=== PATIENT | female | born 1945 | race Caucasian/White ===

== ENCOUNTER 2017-01-27 14:51 | Emergency (ER) | payer MEDICARE, OTHER ==
[2017-01-27] MEDS ORDERED: DEXAMETHASONE 10 MG/ML VIAL IVP STA (15:53)
[2017-01-27] MEDS ORDERED: KETOROLAC 60 MG/2 ML VIAL IVP STA (15:53)
[2017-01-27] MEDS ORDERED: DEXAMETHASONE 10 MG/ML VIAL ONE (15:56)
[2017-01-27] MEDS ORDERED: KETOROLAC 30 MG/ML VIAL ONE (15:56)
--- NOTE | 2017-01-27 15:59 | ED Physician Documentation ---
History of Present Illness - Stated complaint Stated Complaint: ABD PX - Chief complaint Chief Complaint: Abd Pain - History obtained from History obtained from: Patient - History of Present Illness Timing: Other (10 months) Pain level max: 8 Pain level now: 6 Improved by: rest Worsened by: movement - Additonal information Additional information: Patient is a 71-year-old female that presents to the emergency department complaining of right lower quadrant abdominal pain. She states that this is near the site of her prior hernia repair. This was repaired approximately 10 months ago. Has had continued pain in that site since that time. She is well- appearing, nontoxic. Afebrile. States that she limps when she walks and this is not creating back pain for her as well. Has seen her doctor for this, but states that oxycodone and Vicodin are not helping the pain. She did have vomiting this morning. No fevers. No diarrhea Review of Systems Ten Systems: 10 systems reviewed and negative Constitutional: denies: Fever, Chills Ears: denies: Ear pain Nose: denies: Rhinorrhea / runny nose, Congestion Throat: denies: Sore throat Cardiac: denies: Chest pain / pressure Respiratory: denies: Dyspnea, Cough, Wheezing GI: denies: Nausea, Vomiting, Diarrhea : denies: Dysuria Skin: denies: Rash Musculoskeletal: denies: Neck pain, Back pain Neurologic: denies: Focal weakness, Numbness, Headache PD PAST MEDICAL HISTORY - Past Medical History Past Medical History: Yes Cardiovascular: Hypertension Respiratory: Asthma Endocrine/Autoimmune: None GI: Colon polyps : None HEENT: Chronic vision loss Psych: None Musculoskeletal: None, Chronic back pain Derm: None - Past Surgical History Past Surgical History: Yes General: Colonoscopy Ortho: Spine surgery Derm: Other - Present Medications Home Medications: Ambulatory Orders Medication Instructions Recorded Confirmed Amlodipine Besylate 5 mg PO DAILY 01/14/13 01/27/17 Carvedilol 6.25 mg PO DAILY 01/14/13 01/27/17 hydroCHLOROthiazide [Hydrodiuril] 25 mg PO ONCE 01/14/13 01/27/17 Albuterol Sulfate [Proair Hfa] 8.5 gm IH DAILY 04/02/16 01/27/17 Fluticasone/Vilanterol [Breo 1 puffs DAILY 01/27/17 01/27/17 Ellipta 100-25 Mcg INH] Lidocaine Patch 5% [Lidoderm Patch] 1 patch TOP DAILY PRN #10 patch 01/27/17 Losartan [Cozaar] 50 mg PO DAILY 01/27/17 01/27/17 Meloxicam [Mobic] 7.5 mg PO BID PRN #20 tablet 01/27/17 - Allergies Allergies/Adverse Reactions: Allergies Allergy/AdvReac Type Severity Reaction Status Date / Time tetanus toxoid, adsorbed Allergy unknown Verified 01/27/17 15:35 - Social History Does the pt smoke?: No Smoking Status: Never smoker Does the pt drink ETOH?: Yes Does the pt have substance abuse?: No - POLST Patient has POLST: No PD ED PE NORMAL - Vitals Vital signs reviewed: Yes - General General: Alert and oriented X 3, No acute distress - HEENT HEENT: Moist mucous membranes - Neck Neck: Supple, no meningeal sign - Cardiac Cardiac: RRR - Respiratory Respiratory: No respiratory distress, Clear bilaterally - Abdomen Abdomen: Soft, Other (TTP R lower abdominal area, lower than mc nicci's point. Point tender over the incision. No palpable masses. No peritoneal signs. Mild distention of the abd. ) - Back Back: No CVA TTP, No spinal TTP (other than TTP over the R SI joint.) - Derm Derm: Warm and dry - Extremities Extremities: No edema, No calf tenderness / cord - Neuro Neuro: Alert and oriented X 3, No motor deficit, No sensory deficit - Psych Psych: Normal mood, Normal affect Results - Vitals Vitals: Vital Signs - 24 hr 01/27/17 01/27/17 14:58 17:50 Temperature 36.8 C Heart Rate 88 77 Respiratory 16 16 Rate Blood Pressure 141/87 H 162/84 H O2 Saturation 99 Oxygen O2 Source Room air - Labs Labs: Laboratory Tests 01/27/17 01/27/17 01/27/17 15:58 15:58 16:10 WBC 9.7 RBC 3.65 L Hgb 13.7 Hct 39.1 MCV 107.1 H MCH 37.4 H MCHC 35.0 RDW 12.4 Plt Count 279 MPV 8.5 Neut # 6.8 H Lymph # 1.9 Josephine # 0.9 Eos # 0.1 Baso # 0.1 Absolute Nucleated RBC 0.00 Nucleated RBCs 0.0 Sodium 138 Potassium 3.4 L Chloride 100 L Carbon Dioxide 29 Anion Gap 9.0 BUN 21 H Creatinine 1.1 H Estimated GFR (MDRD) 49 L Glucose 120 H Calcium 9.8 Total Bilirubin 0.7 AST 44 H ALT 34 Alkaline Phosphatase 59 Total Protein 8.3 H Albumin 4.1 Globulin 4.2 Albumin/Globulin Ratio 1.0 Lipase 31 Urine Color YELLOW Urine Clarity CLEAR Urine pH 7.5 Ur Specific Ferriday 1.010 Urine Protein NEGATIVE Urine Glucose (UA) NEGATIVE Urine Ketones NEGATIVE Urine Occult Blood TRACE-LYSE Urine Nitrite NEGATIVE Urine Bilirubin NEGATIVE Urine Urobilinogen 0.2 (NORMAL) Ur Leukocyte Esterase LARGE H Urine RBC 6-10 H Urine WBC 6-10 H Ur Squamous Epith Cells MOD Squamous H Urine Bacteria None Seen Ur Microscopic Review INDICATED Urine Culture Comments NOT INDICATED - Rads (name of study) CT abdomen and pelvis Radiology: Prelim report reviewed, EMP read contemporaneously, See rad report ( Stable fat-containing inguinal hernias, left greater than right, otherwise unremarkable abdomen and pelvis CT. ) PD MEDICAL DECISION MAKING - ED course Complexity details: reviewed results, re-evaluated patient, considered differential, d/w patient ED course: Patient is a 71-year-old female who presents to the emergency department what appears to be 2 issues today. The first is sacroiliitis of the right low back. Symptoms greatly improved with Toradol and dexamethasone. The second appears to be incisional adhesions to the right groin. Initially concern for possible reherniation or bowel obstruction given her vomiting today, but the CT scan does not reveal any acute abnormalities. She still does have stable fat- containing hernias. She is tender over the incision site. Recommend that she perform gentle massage and may benefit from fascial massage. She is very well- appearing, nontoxic. Pain improved with a Lidoderm patch. Will prescribe pain medication and Lidoderm for home and have her follow-up with her doctor for further evaluation and care. Patient counseled regarding signs and symptoms for which I believe and urgent re-evaluation would be necessary. Patient with good understanding of and agreement to plan and is comfortable going home at this time This document was made in part using voice recognition software. While efforts are made to proofread this document, sound alike and grammatical errors may occur. Departure - Departure Disposition: 01 Home, Self Care Clinical Impression: Sacroiliitis, Adhesion, postoperative Condition: Good Instructions: ED Sacroiliitis, ED Abdominal Pain Adhesions Follow-Up: Mukesh Colón MD [Primary Care Provider] - Within 1 week Prescriptions: Lidocaine Patch 5% [Lidoderm Patch] 1 patch TOP DAILY PRN #10 patch PRN Reason: pain Meloxicam [Mobic] 7.5 mg PO BID PRN #20 tablet PRN Reason: Abdominal Pain Comments: You should massage the area of the incision 2-3 times daily to help break up the adhesions. Return if you worsen. Discharge Date/Time: 01/27/17 18:22
[2017-01-27 16:06] LABS: BASOPHILS # (AUTO) 0.1 10^3/uL (0.0-0.1); BASOPHILS % (AUTO) 0.8 %; EOSINOPHILS # (AUTO) 0.1 10^3/uL (0.0-0.7); EOSINOPHILS % (AUTO) 0.8 %; HCT - HEMATOCRIT 39.1 % (37.0-47.0); HGB - HEMOGLOBIN 13.7 g/dL (12.0-16.0); LYMPHOCYTES # (AUTO) 1.9 10^3/uL (1.5-3.5); LYMPHOCYTES % (AUTO) 19.4 %; MEAN CORPUSCULAR HEMOGLOBIN 37.4 pg (27.0-31.0); MEAN CORPUSCULAR VOLUME 107.1 fL (81.0-99.0); MEAN PLATELET VOLUME 8.5 fL (7.9-10.8); MONOCYTES # (AUTO) 0.9 10^3/uL (0.0-1.0); MONOCYTES % (AUTO) 9.2 %; NEUTROPHILS # (AUTO) 6.8 10^3/uL (1.5-6.6); NEUTROPHILS % (AUTO) 69.8 %; RED BLOOD COUNT 3.65 10^6/uL (4.20-5.40); RED CELL DISTRIBUTION WIDTH 12.4 % (12.0-15.0); UNCORRECTED WHITE BLOOD COUNT 9.7 x10^3/uL; WHITE BLOOD COUNT 9.7 x10^3/uL (4.8-10.8)
[2017-01-27 16:18] LABS: BILIRUBIN,TOTAL 0.7 mg/dL (0.2-1.0); CALCIUM 9.8 mg/dL (8.5-10.3); CREATININE 1.1 mg/dL (0.4-1.0); POTASSIUM 3.4 mmol/L (3.5-5.0); TOTAL PROTEIN 8.3 g/dL (6.7-8.2)
[2017-01-27 17:02] LABS: BILIRUBIN,URINE NEGATIVE (NEGATIVE); PH,URINE 7.5 PH (5.0-7.5)
[2017-01-27] MEDS ORDERED: IOPAMIDOL-300 100 ML VIAL IVP ONE (17:10)
[2017-01-27 17:14] LABS: UA w/ MICROSCOPIC CHARGE YES
[2017-01-27 17:15] LABS: UR CULTURE IF IND NOT INDICATED
--- NOTE | 2017-01-27 17:43 | CT Preliminary Report ---
Exam: CT Abdomen/Pelvis W/ IMPRESSION: Stable fat-containing inguinal hernias, left greater than right, otherwise unremarkable a bdomen and pelvis CT. Normal appendix noted. [facility] SITE ID: [id number]
[2017-01-27] MEDS ORDERED: LIDOCAINE PATCH 5% TOP STA (17:45)
[2017-01-27] MEDS ORDERED: LIDOCAINE PATCH 5% TOP ONE (17:46)
--- NOTE | 2017-01-27 17:46 | CT Report ---
EXAM: CT ABDOMEN AND PELVIS EXAM DATE: 01/27/2017 05:16 PM. CLINICAL HISTORY: RLQ pain. Vomiting. COMPARISONS: 02/25/2016. TECHNIQUE: Routine helical CT imaging was performed through the abdomen and pelvis. IV contrast: 75 c c of [id number]. Enteric contrast: No. Reconstructions: Coronal and sagittal. In accordance with CT protocol optimization, one or more of the following dose reduction techniques w ere utilized for this exam: automated exposure control, adjustment of mA and/or KV based on patient s ize, or use of iterative reconstructive technique. FINDINGS: Lung Bases: Unremarkable. Liver: Normal. No masses. Gallbladder/Bile Ducts: Unremarkable. Spleen: Normal. Pancreas: Normal. Adrenal Glands: Normal. Kidneys: Normal. No masses or hydronephrosis. Peritoneal Cavity/Bowel: Mild diverticulosis. No free fluid, free air or adenopathy. No masses or acu te inflammatory process. The appendix is well visualized and normal. Pelvic Organs: Reproductive organs and bladder are unremarkable. Vasculature: No aneurysms or other significant abnormality. Bones: No significant abnormality. Other: Fat-containing inguinal hernias, left greater than right. IMPRESSION: Stable fat-containing inguinal hernias, left greater than right, otherwise unremarkable a bdomen and pelvis CT. [facility] Referring Provider Line: [phone] SITE ID: [id number]
[2017-01-27 18:10] VITALS: BP 162/84
== END 2017-01-27 18:22 | disposition home or self-care (01) ==
LOC: ED 14:51
DX: M46.1 Sacroiliitis, not elsewhere classified (principal); K66.0 Peritoneal adhesions (postprocedural) (postinfection); I10 Essential (primary) hypertension; J45.909 Unspecified asthma, uncomplicated; Z86.010 Personal history of colon polyps
CPT/HCPCS: 36415; 74177; 80053; 81001; 83690; 85025; 96374; 96375; 99283; 99284; A9270; Q9967; 81003; 87086